=== PATIENT | male | born 1960 | race Caucasian/White ===

== ENCOUNTER → 2020-09-10 | Outpatient (CLI) | payer BC, OTHER ==
[~2020-09-10] VITALS: Ht 193 cm; Wt 122.5 kg
[~2020-09-10] MED LIST: ELIQUIS5 MG PO; PENTOXIFYLLINE400 MG PO; PLAVIX 75 MG TA75 MG PO; PROTONIX 20 MG20 M1 PO
[2020-09-10 09:25] VITALS: BP 142/76
[2020-09-10 09:58] LABS: HEMATOCRIT 30.7 % (42.0-52.0); HEMOGLOBIN 9.4 gm/dL (14.0-18.0); MCH 21.8 pg (26.0-34.0); MCHC 30.5 g/dL (28.0-37.0); MCV 71.5 fL (80.0-100.0); RBC 4.29 mil/uL (4.50-6.00); RDW 20.8 % (10.5-14.5); WBC 5.3 thou/uL (4.0-11.0)
[2020-09-10 10:17] LABS: CALCIUM 8.3 mg/dL (8.5-10.1); CREATININE 1.5 mg/dL (0.7-1.3)
== END | disposition home or self-care (01) ==
LOC: CATH 07-23 08:57
PROVIDERS: ATTEND Nuclear Medicine Nuclear Cardiology
DX: I87.1 Compression of vein (principal); I87.323 Chronic venous hypertension (idiopathic) with inflammation of bilateral lower extremity; R22.43 Localized swelling, mass and lump, lower limb, bilateral; Z98.890 Other specified postprocedural states; Z79.899 Other long term (current) drug therapy; Z79.01 Long term (current) use of anticoagulants; Z88.8 Allergy status to other drugs, medicaments and biological substances

== ENCOUNTER → 2020-12-15 | Outpatient (CLI) | payer BC, OTHER | LOC: SJCVCIMAG 09:16 | PROVIDERS: ATTEND Nuclear Medicine Nuclear Cardiology | DX: L97.919 Non-pressure chronic ulcer of unspecified part of right lower leg with unspecified severity (principal); L97.929 Non-pressure chronic ulcer of unspecified part of left lower leg with unspecified severity; R09.89 Other specified symptoms and signs involving the circulatory and respiratory systems; Z88.5 Allergy status to narcotic agent; Z88.8 Allergy status to other drugs, medicaments and biological substances; Z72.89 Other problems related to lifestyle ==